=== PATIENT | male | born 1995 | race Caucasian/White ===

== ENCOUNTER 2016-08-17 21:42 | Emergency (ER) | END 2016-08-17 22:56 | disposition left against medical advice (07) | LOC: ER 21:42 | DX: Z53.9 Procedure and treatment not carried out, unspecified reason (principal) ==

== ENCOUNTER 2016-08-18 16:12 | Emergency (ER) | payer SELFPAY ==
[2016-08-18 16:17] VITALS: BP 117/61
[2016-08-18] MEDS ORDERED: IBUPROFEN 800 MG TABLET PO ONE (16:38)
--- NOTE | 2016-08-18 16:38 | ER Document Report ---
ED Medical Screen (RME) - General Stated Complaint: RIGHT INDEX FINGER LACERATION Notes: patient is a 20-year-old male presents emergency Department complaining of a dog bite to the right index finger that happened yesterday. Patient dog is vaccinated up-to-date on tetanus. mild bleeding. sensation intact and motor intact I have greeted and performed a rapid initial assessment of this patient. A comprehensive ED assessment and evaluation of the patient, analysis of test results and completion of the medical decision making process will be conducted by additional ED providers. Physical Exam - Vital signs Vitals: Temp Pulse Resp BP Pulse Ox 97.6 F 61 16 117/61 99 08/18/16 16:16 08/18/16 16:16 08/18/16 16:16 08/18/16 16:16 08/18/16 16:16 Course - Vital Signs Vital signs: Temp Pulse Resp BP Pulse Ox 97.6 F 61 16 117/61 99 08/18/16 16:16 08/18/16 16:16 08/18/16 16:16 08/18/16 16:16 08/18/16 16:16
--- NOTE | 2016-08-18 17:40 | ER Document Report ---
ED Medical Screen (RME) - General Chief Complaint: Dog Bite Stated Complaint: RIGHT INDEX FINGER LACERATION Mode of Arrival: Ambulatory Information source: Patient Notes: Patient presents to the emergency department with injury to his right index finger. Patient reports he was playing with 2 dogs pulled his hand back and accidentally hit the dog's mouth. Dogs tooth pulled out and was impacted into his right index finger, dorsally, PIP. He pulled the tooth out of his finger. Patient reports the finger is still bleeding. Patient also reports he is unable to flex his finger entirely. Reports tetanus is up-to-date and dogs vaccines are up-to-date TRAVEL OUTSIDE OF THE [place] IN LAST 30 DAYS: No - Related Data Allergies/Adverse Reactions: No Known Allergies Allergy (Verified 08/18/16 16:39) Past Medical History - Social History Chew tobacco use (# tins/day): No Frequency of alcohol use: None Drug Abuse: None Renal/ Medical History: Denies: Hx Peritoneal Dialysis Physical Exam - Vital signs Vitals: Temp Pulse Resp BP Pulse Ox 97.6 F 61 16 117/61 99 08/18/16 16:16 08/18/16 16:16 08/18/16 16:16 08/18/16 16:16 08/18/16 16:16 Course - Vital Signs Vital signs: Temp Pulse Resp BP Pulse Ox 97.6 F 61 16 117/61 99 08/18/16 16:16 08/18/16 16:16 08/18/16 16:16 08/18/16 16:16 08/18/16 16:16
== END 2016-08-18 18:55 | disposition left against medical advice (07) ==
LOC: ER 16:12
DX: S61.250A Open bite of right index finger without damage to nail, initial encounter (principal); W54.0XXA Bitten by dog, initial encounter; Y93.K9 Activity, other involving animal care; Z53.20 Procedure and treatment not carried out because of patient's decision for unspecified reasons
CPT/HCPCS: 99281

== ENCOUNTER 2016-09-03 20:27 | Emergency (ER) | payer OTHER ==
[2016-09-03 20:53] VITALS: BP 127/57
[2016-09-03] MEDS ORDERED: ACETAMINOPHEN 325 MG TABLET PO ONE (21:15)
--- NOTE | 2016-09-03 21:17 | ER Document Report ---
ED Medical Screen (RME) - General Stated Complaint: FINGER LACERATION Notes: Patient is a 20-year-old male presents emergency department after crush injury to the right fourth digit after loading truck trailer. Admits to sensation intact at the tip of the finger. Tetanus is up-to-date. Evidence of abrasions over the fat pad of the fourth digit, no longer bleeding decreased range of motion of the DIP of the fourth digit. I have greeted and performed a rapid initial assessment of this patient. A comprehensive ED assessment and evaluation of the patient, analysis of test results and completion of the medical decision making process will be conducted by additional ED providers. TRAVEL OUTSIDE OF THE [place] IN LAST 30 DAYS: No - Related Data Allergies/Adverse Reactions: No Known Allergies Allergy (Verified 08/18/16 16:39) Past Medical History Renal/ Medical History: Denies: Hx Peritoneal Dialysis Physical Exam - Vital signs Vitals: Temp Pulse Resp BP Pulse Ox 98.1 F 48 L 16 127/57 H 100 09/03/16 20:52 09/03/16 20:52 09/03/16 20:52 09/03/16 20:52 09/03/16 20:52 Course - Vital Signs Vital signs: Temp Pulse Resp BP Pulse Ox 98.1 F 48 L 16 127/57 H 100 09/03/16 20:52 09/03/16 20:52 09/03/16 20:52 09/03/16 20:52 09/03/16 20:52
--- NOTE | 2016-09-03 22:11 | ER Document Report ---
ED Hand/Wrist Injury - General Mode of Arrival: Ambulatory Information source: Patient TRAVEL OUTSIDE OF THE [place] IN LAST 30 DAYS: No - HPI Patient complains to provider of: Right Middle Finger Pain Injury to: Middle finger - Right Onset: This evening - 20:00 Where: Outdoors Timing: Still present Quality of pain: Throbbing Context: Crush - b/w trailer and truck <YI BURCIAGA - Last Filed: 09/03/16 22:36> <SEBASTIAN KOTHARI - Last Filed: 09/03/16 23:27> - General Chief Complaint: Finger Injury Stated Complaint: FINGER LACERATION Notes: Patient is a 20-year-old male presenting to the emergency department concerned of right middle finger pain after he smashed his finger between a [employer] trailer and a truck around 20:00. Patient states that the whole was on a slope and he tried to catch it before to this chart. Patient can't remember when he got his last tetanus shot, but he is in the so he assumes it is up-to- date. Patient has no other injuries or complaints. (YI BURCIAGA) - Related Data Allergies/Adverse Reactions: No Known Allergies Allergy (Verified 08/18/16 16:39) Past Medical History - General Information source: Patient - Social History Smoking Status: Never Smoker Chew tobacco use (# tins/day): No Frequency of alcohol use: None Drug Abuse: None Family History: Reviewed & Not Pertinent Patient has suicidal ideation: No Patient has homicidal ideation: No Renal/ Medical History: Denies: Hx Peritoneal Dialysis <YI BURCIAGA - Last Filed: 09/03/16 22:36> Review of Systems - Review of Systems Constitutional: No symptoms reported EENT: No symptoms reported Cardiovascular: No symptoms reported Respiratory: No symptoms reported Gastrointestinal: No symptoms reported Genitourinary: No symptoms reported Male Genitourinary: No symptoms reported Musculoskeletal: See HPI, Other - Right middle finger pain. Skin: No symptoms reported Hematologic/Lymphatic: No symptoms reported Neurological/Psychological: No symptoms reported -: Yes All other systems reviewed and negative <YI BURCIAGA - Last Filed: 09/03/16 22:36> Physical Exam - Vital signs Interpretation: Normal - General General appearance: Appears well, Alert - HEENT Head: Normocephalic, Atraumatic Eyes: Normal Pupils: PERRL - Respiratory Respiratory status: No respiratory distress Chest status: Nontender Breath sounds: Normal Chest palpation: Normal - Cardiovascular Rhythm: Regular Heart sounds: Normal auscultation Murmur: No - Abdominal Inspection: Normal Distension: No distension Bowel sounds: Normal Tenderness: Nontender Organomegaly: No organomegaly - Back Back: Normal, Nontender - Extremities General lower extremity: Normal inspection, Nontender, Normal color, Normal ROM , Normal temperature, Normal weight bearing - Neurological Neuro grossly intact: Yes Cognition: Normal William Coma Scale Eye Opening: Spontaneous [place] Coma Scale Verbal: Oriented William Coma Scale Motor: Obeys Commands William Coma Scale Total: 15 Speech: Normal - Psychological Associated symptoms: Normal affect, Normal mood - Skin Skin Temperature: Warm Skin Moisture: Dry Skin Color: Other - See finger exam <YI BURCIAGA - Last Filed: 09/03/16 22:36> - Extremities Forearm: Normal Wrist: Normal Hand: Tender - Tenderness to palpation Over palmar aspect of fourth distal phalanx with multiple superficial abrasions. Bleeding controlled <SEBASTIAN KOTHARI - Last Filed: 09/03/16 23:27> - Vital signs Vitals: Temp Pulse Resp BP Pulse Ox 98.1 F 48 L 16 127/57 H 100 09/03/16 20:52 09/03/16 20:52 09/03/16 20:52 09/03/16 20:52 09/03/16 20:52 Course <YI BURCIAGA - Last Filed: 09/03/16 22:36> - Diagnostic Test Radiology reviewed: Image reviewed, Reports reviewed <SEBASTIAN KOTHARI - Last Filed: 09/03/16 23:27> - Re-evaluation Re-evalutation: 09/03/16 23:25 Patient with no fracture on imaging. Superficial abrasions to distal fourth right finger. There is nothing to suture. Close with Dermabond. Patient started on Keflex prophylactically. Stable for discharge. Avoid manual labor over the weekend. Return immediately if any redness, discharge, increasing pain , or further concerns. (SEBASTIAN KOTHARI) - Vital Signs Vital signs: Temp Pulse Resp BP Pulse Ox 98.1 F 48 L 16 127/57 H 100 09/03/16 20:52 09/03/16 20:52 09/03/16 20:52 09/03/16 20:52 09/03/16 20:52 Procedures - Laceration/Wound Repair Right 4th digit Wound length (cm): 3 Wound's Depth, Shape: Superficial, Linear Wound explored: Clean Irrigated w/ Saline (mLs): 1,000 Wound Repaired With: Dermabond Post-procedure NV exam normal: No Complications: No <SEBASTIAN KOTHARI - Last Filed: 09/03/16 23:27> Discharge <YI BURCIAGA - Last Filed: 09/03/16 22:36> <SEBASTIAN KOTHARI - Last Filed: 09/03/16 23:27> - Discharge Clinical Impression: Finger laceration Qualifiers: Encounter type: initial encounter Qualified Code(s): S61.219A - Laceration without foreign body of unspecified finger without damage to nail, initial encounter Crush injury to finger Qualifiers: Encounter type: initial encounter Qualified Code(s): S67.10XA - Crushing injury of unspecified finger(s), initial encounter Condition: Stable Disposition: HOME, SELF-CARE Instructions: Skin Adhesive Closure ([facility]), Crush Injury ([facility]) Prescriptions: Cephalexin Monohydrate [Keflex 500 mg Capsule] 500 mg PO QID #40 capsule Forms: Return to Work Scribe Attestation: 09/03/16 23:27 I personally performed the services described in the documentation, reviewed and edited the documentation which was dictated to the scribe in my presence, and it accurately records my words and actions. (SEBASTIAN KOTHARI) Scribe Documentation - Scribe Written by Scribe:: Yi Burciaga 09/03/2016 2211 acting as scribe for :: Toni <YI BURCIAGA - Last Filed: 09/03/16 22:36>
[2016-09-03] MEDS ORDERED: CEPHALEXIN 500 MG CAPSULE PO ONE (22:43)
== END 2016-09-03 22:54 | disposition home or self-care (01) ==
LOC: ER 20:27
PROC: 0HQFXZZ Repair Right Hand Skin, External Approach (ICD-10-PCS; principal; 2016-09-03)
DX: S61.219A Laceration without foreign body of unspecified finger without damage to nail, initial encounter (principal); S67.10XA Crushing injury of unspecified finger(s), initial encounter; S69.91XA Unspecified injury of right wrist, hand and finger(s), initial encounter; X58.XXXA Exposure to other specified factors, initial encounter
CPT/HCPCS: 99283

== ENCOUNTER 2017-03-28 23:11 | Emergency (ER) | payer OTHER ==
[2017-03-28 23:24] VITALS: BP 134/52
--- NOTE | 2017-03-28 23:37 | ER Document Report ---
ED GI/ - General Chief Complaint: Testicular Pain Stated Complaint: GROIN PAIN Notes: Patient is complaining of pain in the left testicle for the past 4 days. He has never had any problems of this sort before. Does not have any history of any injuries or unusual activity. He is in the , but on leave at this time. About an hour and a half prior to coming to the emergency department, the patient noticed that it looked dark and black at the inferior aspect of the scrotum on the left side and that is what concerned him and made him come to the emergency department tonight. He has not had any blood in his urine. Has not had any symptoms of a urinary tract infection. Denies fever. Has no bleeding disorders. TRAVEL OUTSIDE OF THE [place] IN LAST 30 DAYS: No - Related Data Allergies/Adverse Reactions: No Known Allergies Allergy (Verified 03/28/17 23:22) Past Medical History - Social History Smoking Status: Unknown if Ever Smoked Family History: Reviewed & Not Pertinent Patient has suicidal ideation: No Patient has homicidal ideation: No Review of Systems - Review of Systems Notes: REVIEW OF SYSTEMS: CONSTITUTIONAL : Denies fever. GASTROINTESTINAL: Denies abdominal pain or nausea, vomiting, or diarrhea. GENITOURINARY: See HPI. Denies difficulty or painful urinating, urinary frequency, blood in urine. MUSCULOSKELETAL: Denies back or neck pain. Denies joint pain or swelling. SKIN: Denies rash or skin lesions. NEUROLOGICAL: Denies LOC or altered mental status. Denies headache. Denies sensory loss or motor deficits. ALL OTHER SYSTEMS REVIEWED AND NEGATIVE. Physical Exam - Vital signs Vitals: Temp Pulse Resp BP Pulse Ox 98.4 F 46 L 16 134/52 H 98 03/28/17 23:22 03/28/17 23:22 03/28/17 23:22 03/28/17 23:22 03/28/17 23:22 - Notes Notes: PHYSICAL EXAMINATION: GENERAL: Well-appearing, in no acute distress. Auditory without any discomfort. ABDOMEN: Soft, nontender. No guarding or rebound. Genitourinary exam: Both testicles are normal. Neither testicle is tender nor swollen. Patient has some tenderness in the inferior aspect of the left scrotum and the skin at that area has a bruised appearance as if there is blood deposited subcutaneously. BACK: No tenderness throughout entire back. EXTREMITIES: Normal range of motion without pain. SKIN: Warm, dry, no rashes. Course - Vital Signs Vital signs: Temp Pulse Resp BP Pulse Ox 98.4 F 46 L 16 134/52 H 98 03/28/17 23:22 03/28/17 23:22 03/29/17 00:37 03/28/17 23:22 03/28/17 23:22 - Laboratory Result Diagrams: 03/29/17 00:00 03/29/17 00:00 Laboratory results interpreted by me: 03/29/17 03/29/17 00:00 00:00 MCHC 36.2 H Potassium 3.5 L - Diagnostic Test Radiology reviewed: Image reviewed, Reports reviewed - Ultrasound shows hydrocele and varicocele, of the left scrotum/testicle. This corresponds to the area of dark coloration that the patient's noted. Discharge - Discharge Clinical Impression: Hydrocele of testis, Left varicocele Condition: Stable Disposition: HOME, SELF-CARE Additional Instructions: Hydrocele You have been diagnosed as having a hydrocele. The sac that holds the testicles is called the scrotum. A hydrocele is usually a painless collection of fluid in the membrane that covers the testicle(s). This may be present at or develop later on in life. The cause is usually unknown. In infants a hydrocele can be due to a miscommunication of the fluid surrounding the testes. In adults a hydrocele may form due to injury or inflammation of surrounding structures. Most hydroceles require no treatment, and usually resolve on their own. However, sometimes surgical intervention is recommended for recurrent, or for unusually large hydroceles. The surgery to fix a hydrocele is a minor procedure and usually takes about 1 and 1/2 hours. You also have a varicocele of the scrotum on the left side. Ibuprofen Ibuprofen is an excellent, safe drug for pain control. In addition, it has potent antiinflammatory effects which are beneficial, especially in the treatment of injuries, arthritis, or tendonitis. It's best to take ibuprofen with food. Persons with ulcer disease or allergy to aspirin should notify their physician of this before taking ibuprofen. Take the medication exactly as prescribed. Don't take additional doses unless instructed to do so by your doctor. If you develop wheezing, shortness of breath, hives, faintness, stomach pain, vomiting, or dark black stools, return for re-evaluation at once. FOLLOW-UP CARE: If you have been referred to a physician for follow-up care, call the physician s office for an appointment as you were instructed or within the next two days. If you experience worsening or a significant change in your symptoms, notify the physician immediately or return to the Emergency Department at any time for re-evaluation. Your condition is a benign condition that has seen very often. [place] to determine if any procedure is necessary to treat your condition.
[2017-03-29 00:26] LABS: ABSOLUTE EOSINOPHILS # (AUTO) 0.3 10^3/uL (0.0-0.6); ABSOLUTE LYMPHOCYTES (AUTO) 2.6 10^3/uL (0.5-4.7); ABSOLUTE MONOCYTES (AUTO) 0.5 10^3/uL (0.1-1.4); ABSOLUTE NEUT (AUTO) 3.7 10^3/uL (1.7-8.2); BASOPHILS % (AUTO) 0.6 % (0-2); EOSINOPHILS % (AUTO) 4.3 % (0-6); HEMATOCRIT 39.9 % (37.9-51.0); HEMOGLOBIN 14.4 g/dL (13.5-17.0); HGB HCT DIFFERENCE 3.3; LYMPHOCYTES % (AUTO) 36.4 % (13-45); MEAN CORPUSCULAR HEMOGLOBIN 29.9 pg (27.0-33.4); MEAN CORPUSCULAR HGB CONC 36.2 g/dL (32.0-36.0); MEAN CORPUSCULAR VOLUME 83 fl (80-97); MONOCYTES % (AUTO) 7.5 % (3-13); RED BLOOD COUNT 4.83 10^6/uL (4.35-5.55); RED CELL DISTRIBUTION WIDTH 11.9 % (11.5-14.0); SEGMENTED NEUTROPHILS % (AUTO) 51.2 % (42-78); WHITE BLOOD COUNT 7.3 10^3/uL (4.0-10.5)
[2017-03-29 00:40] LABS: ALANINE AMINOTRANSFERASE 27 U/L (21-72); ALBUMIN 4.5 g/dL (3.5-5.0); ALKALINE PHOSPHATASE 71 U/L (38-126); ANION GAP 11 (5-19); ASPARTATE AMINO TRANSFERASE 25 U/L (17-59); BILIRUBIN,DIRECT 0.4 mg/dL (0.0-0.4); BILIRUBIN,TOTAL 0.7 mg/dL (0.2-1.3); BLOOD UREA NITROGEN 14 mg/dL (7-20); CALCIUM 9.7 mg/dL (8.4-10.2); CARBON DIOXIDE 30 mmol/L (22-30); CHLORIDE 100 mmol/L (98-107); CREATININE RESULT 0.97 mg/dL (0.52-1.25); GLUCOSE 94 mg/dL (75-110); POTASSIUM 3.5 mmol/L (3.6-5.0); SODIUM 141.3 mmol/L (137-145); TOTAL PROTEIN 7.2 g/dL (6.3-8.2)
[2017-03-29 00:54] LABS: APPEARANCE,URINE CLEAR; BILIRUBIN,URINE NEGATIVE (NEGATIVE); GLUCOSE, URINE NEGATIVE (NEGATIVE); KETONES,URINE NEGATIVE (NEGATIVE); LEUKOCYTE ESTERASE,URINE NEGATIVE (NEGATIVE); NITRITE,URINE NEGATIVE (NEGATIVE); PROTEIN,URINE NEGATIVE (NEGATIVE); URINE SPECIFIC GRAVITY 1.021; UROBILINOGEN,URINE NEGATIVE mg/dL (<2.0)
--- NOTE | 2017-03-29 01:12 | RADIOLOGY REPORT (SQ) ---
EXAM DESCRIPTION: U/S SCROTUM W/DOPPLER COMPLETED DATE/TIME: 03/29/2017 12:44 am REASON FOR STUDY: Pain left scrotum with apparent left scrotal bruise COMPARISON: None. TECHNIQUE: Static and realtime henderson scale imaging of the scrotum and testes. Selected color Doppler and spectral images recorded to document blood flow. LIMITATIONS: None. FINDINGS: RIGHT: TESTICLE: Measures 4.2 x 2.7 x 3.1 cm. Normal echotexture. Normal blood flow. No mass. EPIDIDYMIS: Measures 7 x 10 x 8 mm. HYDROCELE OR VARICOCELE: Small hydrocele. No varicocele. HERNIA OR EXTRA-TESTICULAR MASS: No. LEFT: TESTICLE: Measures 3.8 x 2.8 x 4.1 cm. Normal echotexture. Normal blood flow. No mass. EPIDIDYMIS: Measures 9 x 9 x 10 mm. HYDROCELE OR VARICOCELE: Moderate hydrocele with mobile debris. Varicoceles measuring 4.4 mm. HERNIA OR EXTRA-TESTICULAR MASS: No. IMPRESSION: No sonographic evidence for testicular mass or torsion. Mild right-sided hydrocele. Moderate left-sided hydrocele with mobile debris, suggestive of chronicity. Left-sided varicocele. U rology consult recommended. TECHNICAL DOCUMENTATION: JOB ID: [id number] 2010 [employer]- All Rights Reserved
== END 2017-03-29 01:45 | disposition home or self-care (01) ==
LOC: ER 23:11
DX: N43.2 Other hydrocele (principal); I86.1 Scrotal varices; N50.812 Left testicular pain
CPT/HCPCS: 36415; 76870; 80053; 81001; 85025; 93976; 99284

== ENCOUNTER 2017-08-12 11:01 | Emergency (ER) | payer OTHER ==
--- NOTE | 2017-08-12 12:11 | ER Document Report ---
HPI - HPI Pain Level: 3 Notes: Patient is a 21-year-old male with no significant past medical history who presents to the ED complaining of continued right shoulder pain 2 weeks status post injury. Patient states that he was playing basketball when he grabbed the rim and then felt pain on his way down. Patient states that he was evaluated by his primary care provider and was told that it was a strain, but patient continues to have intermittent pain. Patient states that he is still able to move his shoulder and arm through range of motion. Pain is primarily to the anterolateral side. No other concerns or complaints at this time. Denies any smoking or IV drug use. Denies any drug allergies. Denies any headache, fever , neck pain, URI, sore throat, chest pain, palpitations, syncope, cough, shortness of breath, wheeze, dyspnea, abdominal pain, nausea/vomiting/diarrhea, urinary retention, dysuria, hematuria, loss of control of bowel or bladder, numbness/tingling, saddle anesthesia, muscle paralysis/weakness, or rash. - ROS Systems Reviewed and Negative: Yes All other systems reviewed and negative Past Medical History - Social History Smoking Status: Never Smoker Family History: Reviewed & Not Pertinent Renal/ Medical History: Denies: Hx Peritoneal Dialysis Vertical Provider Document - CONSTITUTIONAL Agree With Documented VS: Yes Notes: PHYSICAL EXAMINATION: GENERAL: Well-appearing, well-nourished and in no acute distress. NECK: Normal range of motion, supple without lymphadenopathy LUNGS: Breath sounds clear to auscultation bilaterally and equal. No wheezes rales or rhonchi. HEART: Regular rate and rhythm without murmurs, rubs, gallops. Musculoskeletal: Rt shoulder: FROM to passive/active. Strength 5+/5. RC intact. + mild tenderness soft tissue lateral deltoid. No obvious tendon rupture, biceps/triceps intact. N/V intact distal. + mild impingement test. Extremities: No cyanosis, clubbing, or edema b/l. Peripheral pulses 2+. Capillary refill less than 3 seconds. NEUROLOGICAL: Normal speech, normal gait. Normal sensory, motor exams PSYCH: Normal mood, normal affect. SKIN: Warm, Dry, normal turgor, no rashes or lesions noted. - INFECTION CONTROL TRAVEL OUTSIDE OF THE [place] IN LAST 30 DAYS: No - RESPIRATORY O2 Sat by Pulse Oximetry: 99 Course - Re-evaluation Re-evalutation: 08/12/17 12:09 Patient is an afebrile, well-hydrated, 21-year-old male who presents to the ED with a possible mild impingement in his right shoulder. I suspect that this is inflammatory. Patient had no bony tenderness on exam. Vitals are stable. PE is otherwise unremarkable for any neurovascular compromise, obvious tendon/ ligament rupture, obvious fracture/dislocation, septic joint. Rotator cuff appears intact. No imaging or labs warranted at this time based on H&P. Recommend conservative measures for symptoms. Thoroughly reviewed shoulder exercises. Schedule an appointment with orthopedics for further evaluation and management. Recheck with your PCM in 3-5 days as well. Return to the ED with any worsening/concerning symptoms otherwise as reviewed discharge. Patient is in agreement. - Vital Signs Vital signs: Temp Pulse Resp BP Pulse Ox 98.0 F 48 L 14 126/71 H 99 08/12/17 11:14 08/12/17 11:14 08/12/17 11:14 08/12/17 11:14 08/12/17 11:14 Discharge - Discharge Clinical Impression: Right shoulder pain Qualifiers: Chronicity: acute Qualified Code(s): M25.511 - Pain in right shoulder Condition: Stable Disposition: HOME, SELF-CARE Instructions: Shoulder Injury ([facility]) Additional Instructions: Rest, Ice, Compression Tylenol/ibuprofen as needed Light stretches daily Strength exercises as able Moist heat and massage may help F/u with your PCP in 3-5 days for a recheck Consider consult(s) with Orthopedics/physical therapy for ongoing/worsening symptoms Return to the ED with any worsening symptoms and/or development of fever, headache, chest pain, palpitations, syncope, shortness of breath, trouble breathing, abdominal pain, n/v/d, muscle weakness/paralysis, numbness/tingling, swelling, redness, or other worsening symptoms that are concerning to you. Forms: Elevated Blood Pressure Referrals: [facility] [Provider Group] - Follow up as needed
[2017-08-12 13:27] VITALS: BP 121/59
== END 2017-08-12 13:28 | disposition home or self-care (01) ==
LOC: ER 11:01
DX: M25.511 Pain in right shoulder (principal)
CPT/HCPCS: 99283